=== PATIENT | male | born 1960 | race Two or more races ===

== ENCOUNTER 2017-03-09 22:43 | Emergency (ER) | payer MEDICARE, MEDICAID ==
[~2017-03-09 22:43] MED LIST: ALD25; ANTIVERT12.5 MG PO; BUSPIRONE10 MG PO; CLINDAMYCIN150 MG PO; COL100; COR200 PO; CORE25; L20; LORAZEPAM0.5 PO; LOT10 PO; NIACIN; ZOC20; [UNRECOGNIZED DRUG - OTHER] PO
[2017-03-10 01:33] VITALS: BP 114/70
== END 2017-03-10 01:33 | disposition home or self-care (01) ==
LOC: ED 22:43
DX: L03.031 Cellulitis of right toe (principal); I10 Essential (primary) hypertension; I49.9 Cardiac arrhythmia, unspecified; Z88.0 Allergy status to penicillin; Z79.82 Long term (current) use of aspirin; Z79.899 Other long term (current) drug therapy
CPT/HCPCS: J3490

== ENCOUNTER 2017-09-30 11:27 | Emergency (ER) | payer MEDICARE, OTHER ==
[~2017-09-30] VITALS: Ht 177.8 cm; Wt 77.6 kg
[2017-09-30 12:17] VITALS: Ht 177.8 cm; Wt 77.6 kg
[2017-09-30 13:19] LABS: BASOPHIL % 0.4 % (0-2); PLATELET COUNT 151 x10^3mcL (130-400); RED CELL DISTRIBUTION WIDTH 13.1 % (11.5-14.5)
[2017-09-30 13:22] LABS: CALCIUM 8.4 mg/dL (8.5-10.1); CARBON DIOXIDE 26.9 mmol/L (21-32); CHLORIDE SERUM 103 mmol/L (98-107); CREATININE SERUM 1.1 mg/dL (0.7-1.3); GFR1 > 60 mL/min; GLUCOSE SERUM 107 mg/dL (74-106); POTASSIUM SERUM 3.7 mmol/L (3.5-5.1); SODIUM SERUM 140 mmol/L (136-145)
[2017-09-30 13:27] LABS: ALBUMIN 4.3 g/dL (3.4-5.0); ALKALINE PHOSPHATASE 70 U/L (46-116); ALT/SGPT 37 U/L (16-63); AMYLASE 62 U/L (25-115); AST/SGOT 24 U/L (15-37); BILIRUBIN TOTAL 0.8 mg/dL (0.20-1.00); LIPASE 172 IU/L (73-393); TOTAL PROTEIN, SERUM 7.9 g/dL (6.4-8.2)
[2017-09-30 15:20] VITALS: BP 102/69
== END 2017-09-30 15:20 | disposition home or self-care (01) ==
LOC: ED 11:27
PROVIDERS: Emergency Medicine
DX: R10.13 Epigastric pain (principal); E86.0 Dehydration; R11.10 Vomiting, unspecified; R19.7 Diarrhea, unspecified; I10 Essential (primary) hypertension; Z88.0 Allergy status to penicillin; Z95.0 Presence of cardiac pacemaker
CPT/HCPCS: 83880; 87046; 87046-59; J2405; J7030

== ENCOUNTER 2018-07-21 08:52 | Emergency (ER) | payer MEDICARE, OTHER ==
[~2018-07-21] VITALS: Ht 170.2 cm; Wt 83.9 kg
[2018-07-21 09:18] VITALS: Ht 170.2 cm; Wt 83.9 kg
[2018-07-21 10:23] LABS: CALCIUM 8.7 mg/dL (8.5-10.1); CARBON DIOXIDE 30.2 mmol/L (21-32); CHLORIDE SERUM 103 mmol/L (98-107); CREATININE SERUM 1.1 mg/dL (0.7-1.3); GFR1 > 60 mL/min; GLUCOSE SERUM 158 mg/dL (74-106); POTASSIUM SERUM 4.8 mmol/L (3.5-5.1); SODIUM SERUM 136 mmol/L (136-145)
[2018-07-21 10:27] LABS: ALBUMIN 3.8 g/dL (3.4-5.0); ALKALINE PHOSPHATASE 75 U/L (46-116); ALT/SGPT 31 U/L (16-63); AST/SGOT 14 U/L (15-37); BILIRUBIN TOTAL 0.42 mg/dL (0.20-1.00); HDL CHOLESTEROL 39 mg/dL (40-60); PHOSPHOROUS 3.6 mg/dL (2.5-4.9); TOTAL PROTEIN, SERUM 7.5 g/dL (6.4-8.2); URIC ACID 6.6 mg/dL (3.5-7.2)
[2018-07-21 10:34] LABS: BASOPHIL % 0.3 % (0-2); PLATELET COUNT 135 x10^3mcL (130-400); RED CELL DISTRIBUTION WIDTH 14.4 % (11.5-14.5)
[2018-07-21 10:35] LABS: CHOLESTEROL 133 mg/dL (<200)
[2018-07-21 11:11] VITALS: BP 84/63
== END 2018-07-21 11:11 | disposition home or self-care (01) ==
LOC: ED 08:52
PROVIDERS: Emergency Medicine
DX: R42 Dizziness and giddiness (principal); R11.0 Nausea; I10 Essential (primary) hypertension; E78.00 Pure hypercholesterolemia, unspecified; Z88.0 Allergy status to penicillin; Z88.1 Allergy status to other antibiotic agents
CPT/HCPCS: 36415; Q0092